=== PATIENT | male | born 1940 | race Caucasian/White ===

== ENCOUNTER 2021-07-24 14:01 | Emergency (ER) | payer MEDICARE ==
[~2021-07-24] VITALS: Ht 185.4 cm; Wt 83.0 kg
[2021-07-24] MEDS ORDERED: normal saline 1000ML IV soln IVB ONE (15:10)
--- NOTE | 2021-07-24 15:35 | NUR ---
PT TO CT
[2021-07-24 15:53] LABS: BASOPHILS % (AUTO) 0.6 % (0-1); EOSINOPHILS # (AUTO) 0.1 X10'3 (0-0.9); EOSINOPHILS % (AUTO) 1.1 % (0-6); HEMATOCRIT 43.2 % (42.0-52.0); HEMOGLOBIN 15.1 g/dl (14.0-17.9); LYMPHOCYTES # (AUTO) 1.3 X10'3 (1.1-4.8); LYMPHOCYTES % (AUTO) 23.4 % (21-51); MEAN CORPUSCULAR HEMOGLOBIN 33.4 PG (27.0-31.0); MEAN CORPUSCULAR VOLUME 95.2 FL (78-98); MEAN PLATELET VOLUME 7.4 FL (7.4-10.4); MONOCYTES # (AUTO) 0.6 X10'3 (0-0.9); MONOCYTES % (AUTO) 10.8 % (2-12); NEUTROPHILS # (AUTO) 3.6 X10'3 (1.8-7.7); NEUTROPHILS % (AUTO) 64.1 % (42-75); PLATELET COUNT 221 X10'3 (140-440); RED BLOOD COUNT 4.53 X10'6 (4.70-6.10); RED CELL DISTRIBUTION WIDTH 14.4 % (11.5-14.5); WHITE BLOOD COUNT 5.6 X10'3 (4.5-11.0)
--- NOTE | 2021-07-24 16:20 | NUR ---
pt is resting quietly on bed, family at bedside
[2021-07-24 16:22] LABS: ALANINE AMINOTRANSFERASE 22 U/L (12-78); ALBUMIN 3.9 G/DL (3.4-5.0); ALBUMIN/GLOBULIN RATIO 1.3 (1.1-1.5); ALKALINE PHOSPHATASE 111 IU/L (46-116); ANION GAP 9 (8-16); ASPARTATE AMINO TRANSFERASE 14 U/L (10-37); BILIRUBIN,TOTAL 0.5 MG/DL (0.1-1.0); BLOOD UREA NITROGEN 10 MG/DL (7-18); BUN/CREATININE RATIO 8.3 (5.4-32.0); CALCIUM 7.9 MG/DL (8.5-10.1); CHLORIDE 106 MMOL/L (99-107); GLUCOSE 112 MG/DL (70-104); POTASSIUM 4.1 MMOL/L (3.5-5.1); SODIUM 144 MMOL/L (135-145); TOTAL CARBON DIOXIDE 28.7 MMOL/L (24-32); TOTAL PROTEIN 6.9 G/DL (6.4-8.2); eGFR 58 ML/MIN
[2021-07-24 16:23] LABS: TROPONIN I < 0.04 NG/ML (0.0-0.05)
[2021-07-24 17:04] VITALS: BP 133/89
== END 2021-07-24 17:06 | disposition home or self-care (01) ==
LOC: ER 14:02
DX: R53.1 Weakness (principal); R42 Dizziness and giddiness; Z86.73 Personal history of transient ischemic attack (TIA), and cerebral infarction without residual deficits; Z88.0 Allergy status to penicillin; Z90.49 Acquired absence of other specified parts of digestive tract
CPT/HCPCS: 36415; 70450; 71045; 80053; 84484; 85025; 93005; 96360; 99285; J7030

== ENCOUNTER 2024-09-03 06:06 | Inpatient (IN) | payer MEDICARE ==
[~2024-09-03] VITALS: Ht 180.3 cm; Wt 75.4 kg
[2024-09-03] VITALS (16 sets, daily range): BP systolic 124–159; BP diastolic 51–75; PULSE 54–84; RESP 14–21; TEMP 97.5–98.4; O2SAT 93–99
[2024-09-03] MEDS: normal saline 1000ml 1,000 ML IV SCH (05:20)
[2024-09-03] MEDS: morphine 2 MG/ML inj. syringe IV ONE (06:20)
[2024-09-03 06:45] LABS: BASOPHILS % (AUTO) 0.1 % (0-1); EOSINOPHILS % (AUTO) 0 % (0-6); HEMATOCRIT 42.3 % (42.0-52.0); HEMOGLOBIN 14.7 g/dl (14.0-17.9); LYMPHOCYTES # (AUTO) 0.3 X10'3 (1.1-4.8); LYMPHOCYTES % (AUTO) 2.2 % (21-51); MEAN CORPUSCULAR HEMOGLOBIN 30.8 PG (27.0-31.0); MEAN CORPUSCULAR HGB CONC 34.7 g/dL (33.0-36.5); MEAN CORPUSCULAR VOLUME 88.7 FL (78-98); MEAN PLATELET VOLUME 7.3 FL (7.4-10.4); MONOCYTES % (AUTO) 8.7 % (2-12); NEUTROPHILS # (AUTO) 10.6 X10'3 (1.8-7.7); PLATELET COUNT 190 X10'3 (140-440); RED BLOOD COUNT 4.77 X10'6 (4.70-6.10)
[2024-09-03 07:02] LABS: ALANINE AMINOTRANSFERASE 491 U/L (12-78); ALBUMIN 3.8 G/DL (3.4-5.0); ALBUMIN/GLOBULIN RATIO 1.3 (1.1-1.5); ALKALINE PHOSPHATASE 220 IU/L (46-116); ANION GAP 4 (8-16); ASPARTATE AMINO TRANSFERASE 637 U/L (10-37); BLOOD UREA NITROGEN 16 MG/DL (7-18); BUN/CREATININE RATIO 13.4 (10.0-20.0); CALCIUM 8.9 MG/DL (8.5-10.1); CHLORIDE 105 MMOL/L (99-107); CREATININE 1.19 MG/DL (0.60-1.10); GLUCOSE 162 MG/DL (70-104); POTASSIUM 3.6 MMOL/L (3.5-5.1); SODIUM 139 MMOL/L (135-145); TOTAL PROTEIN 6.7 G/DL (6.4-8.2); eCRCL 47 ML/MIN; eGFR 58 ML/MIN
[2024-09-03 07:09] LABS: PRO BRAIN NATRIURETIC PEPTIDE 601 PG/ML (0-450)
[2024-09-03] MEDS: morphine 4 MG/ML inj SYRINge IV ONE (07:25)
[2024-09-03] MEDS ORDERED: iohexol 300mg/ml 100ml inj. ONE (07:35)
[2024-09-03 07:53] LABS: LIPASE 51 U/L (16-77)
[2024-09-03] MEDS: ondansetron/PF 4mg/2ml inj IM ONE (08:16)
[2024-09-03] MEDS ORDERED: potassium Cl 20 mEq SR tablet PO PRN ×2 (08:40)
[2024-09-03] MEDS ORDERED: ondansetron/PF 4mg/2ml inj IV PRN (08:40)
[2024-09-03] MEDS ORDERED: acetaminophen 325mg tablet PO PRN (08:40)
[2024-09-03] MEDS ORDERED: magnesium Cl slow-release 64mg tablet PO PRN (08:40)
[2024-09-03] MEDS ORDERED: magnesium sulf-water 2g/50mL 50 ML IV PRN (08:40)
[2024-09-03] MEDS ORDERED: magnesium sulf-water 4G/100mL 100 ML IV PRN (08:40)
[2024-09-03] MEDS ORDERED: magnesium hydroxide 30ml (MOM) UD suspension PO PRN (08:40)
[2024-09-03] MEDS ORDERED: mag hydrox/Alum hydrox/simeth 30ml oral suspension PO PRN (08:40)
[2024-09-03] MEDS ORDERED: potassium Cl 40MEQ/1/2NS 520ml 520 ML IV PRN (08:40)
[2024-09-03 09:24] LABS: MAGNESIUM 1.8 MG/DL (1.5-2.4)
[2024-09-03] MEDS: PERFLUTREN PROTEIN-A MICROSPHR (Optison) 0.22 MG/ML 3ML VIAL IV ONE (13:50)
[2024-09-03] MEDS ORDERED: glucagon, human recombinant 1mg kit ONE (13:58)
[2024-09-03] MEDS ORDERED: diphenhydrAMINE 50 mg/ml inj ONE (13:58)
[2024-09-03] MEDS ORDERED: MIDAZolam 1 MG/ML 5ML VIAL ONE (13:58)
[2024-09-03] MEDS ORDERED: fentaNYL/PF 50MCG/1 ML 2ML syringe ONE (13:58)
[2024-09-03] MEDS ORDERED: LIDOcaine 2% Viscous 15ml cup ONE (13:59)
[2024-09-03] MEDS: K and/or MAG REPLACEMENT MC SCH (19:21)
[2024-09-03 20:50] LABS: APTT 28 SECONDS (22-32); INR 1.2 INR; PROTHROMBIN TIME 12.2 SECONDS (9.0-12.0)
[2024-09-04] VITALS (10 sets, daily range): BP systolic 112–165; BP diastolic 48–86; PULSE 68–97; RESP 16–20; TEMP 97.4–98.5; O2SAT 93–100
[2024-09-04 03:52] LABS: BILIRUBIN,URINE LARGE (Neg); CLARITY,URINE CLEAR (Clear); GLUCOSE, URINE 100 mg/dl (Neg); KETONES,URINE 15 mg/dl (Neg); LEUKOCYTE ESTERASE ,URINE NEGATIVE (Neg); OCCULT BLOOD,URINE NEGATIVE (Neg); PH,URINE 6.5 (4.8-8.0); PROTEIN,URINE 30 mg/dl (Neg); UROBILINOGEN,URINE >=8.0 E.U/dL (0.2-1.0)
[2024-09-04 04:02] LABS: COLOR,URINE AMBER (Yellow); NITRITES, URINE NEGATIVE (Neg); UA COLLECTION TYPE URINAL
[2024-09-04 04:05] LABS: BACTERIA,URINE FEW /HPF (Neg); SQUAMOUS EPITHELIAL CELL,UR FEW /LPF (FEW); WBC,URINE 0-4 /HPF (0-4)
[2024-09-04 04:06] LABS: AMORPHOUS PHOSPHATES 1+; FINE GRANULAR CAST 0-3 /LPF (NEGATIVE)
[2024-09-04 07:13] LABS: POTASSIUM 3.5 MMOL/L (3.5-5.1)
[2024-09-04 09:09] LABS: BASOPHILS % (AUTO) 0.6 % (0-1); EOSINOPHILS % (AUTO) 0.8 % (0-6); HEMATOCRIT 40.3 % (42.0-52.0); HEMOGLOBIN 13.8 g/dl (14.0-17.9); LYMPHOCYTES # (AUTO) 0.5 X10'3 (1.1-4.8); LYMPHOCYTES % (AUTO) 8.1 % (21-51); MEAN CORPUSCULAR HEMOGLOBIN 30.4 PG (27.0-31.0); MEAN CORPUSCULAR HGB CONC 34.1 g/dL (33.0-36.5); MEAN CORPUSCULAR VOLUME 89.1 FL (78-98); MEAN PLATELET VOLUME 7.9 FL (7.4-10.4); MONOCYTES # (AUTO) 0.7 X10'3 (0-0.9); MONOCYTES % (AUTO) 11.8 % (2-12); NEUTROPHILS # (AUTO) 4.7 X10'3 (1.8-7.7); NEUTROPHILS % (AUTO) 78.7 % (42-75); PLATELET COUNT 160 X10'3 (140-440); RED BLOOD COUNT 4.52 X10'6 (4.70-6.10); RED CELL DISTRIBUTION WIDTH 14.7 % (11.5-14.5)
[2024-09-04 09:16] LABS: ALANINE AMINOTRANSFERASE 260 U/L (12-78); ALBUMIN 3.2 G/DL (3.4-5.0); ALBUMIN/GLOBULIN RATIO 1.2 (1.1-1.5); ALKALINE PHOSPHATASE 189 IU/L (46-116); ANION GAP 6 (8-16); ASPARTATE AMINO TRANSFERASE 142 U/L (10-37); BILIRUBIN,TOTAL 2.9 MG/DL (0.1-1.0); BLOOD UREA NITROGEN 15 MG/DL (7-18); BUN/CREATININE RATIO 13.2 (10.0-20.0); CALCIUM 8.5 MG/DL (8.5-10.1); CHLORIDE 106 MMOL/L (99-107); CREATININE 1.14 MG/DL (0.60-1.10); GLUCOSE 88 MG/DL (70-104); POTASSIUM 3.8 MMOL/L (3.5-5.1); SODIUM 139 MMOL/L (135-145); TOTAL CARBON DIOXIDE 27.4 MMOL/L (24-32); TOTAL PROTEIN 5.9 G/DL (6.4-8.2); eCRCL 50 ML/MIN; eGFR 61 ML/MIN
[2024-09-04 09:35] LABS: HEMOGLOBIN A1C 5.1 % (4.5-6.2)
[2024-09-04] MEDS ORDERED: morphine 4 MG/ML inj SYRINge IV PRN (19:55)
[2024-09-04] MEDS ORDERED: morphine 2 MG/ML inj. syringe IV PRN (19:55)
[2024-09-04] MEDS ORDERED: ondansetron/PF 4mg/2ml inj IV PRN ×2 (19:55→22:40)
[2024-09-04] MEDS ORDERED: meperidine/PF 25mg/ml syringe IV PRN ×3 (19:55)
[2024-09-04] MEDS ORDERED: proCHLORperazine 10 MG/2 ml inj IV PRN (19:55)
[2024-09-04] MEDS: ringers solution, lacted 1,000 ML IV SCH (19:55)
[2024-09-04] MEDS ORDERED: enalaprilat dihydrate 2.5mg/2ml vial IV PRN (19:55)
[2024-09-04] MEDS ORDERED: labetalol 20mg/4ml (5mg/ml) syringe IV PRN (19:55)
[2024-09-04] MEDS: BUPIVAcaine 2.5mg/ml inj 50ml vial (contains preservative) ONE (20:27)
[2024-09-04] MEDS ORDERED: midazolam 1 mg/ML 2ml injection ONE (20:48)
[2024-09-04] MEDS ORDERED: fentaNYL/PF 50MCG/1 ML 2ML syringe ONE (20:48)
[2024-09-04] MEDS ORDERED: sevoflurane 250ml liquid IH ONE (21:05)
[2024-09-04] MEDS ORDERED: LIDOcaine 1%/PF 5ML 10 MG/ML VIAL ONE (21:27)
[2024-09-04] MEDS ORDERED: propofol inj 20 ML IV ONE (21:27)
[2024-09-04] MEDS ORDERED: rocuronium 10mg/ml inj IV ONE (21:27)
[2024-09-04] MEDS: clindamycin-Cleocin 900mg/D5W 50 ML IV ONE (21:38)
[2024-09-04] MEDS ORDERED: acetaminophen 1,000mg/100ml IV 100 ML IV ONE (21:40)
[2024-09-04] MEDS: BUPIVAcaine 2.5mg/ml inj 50ml vial (contains preservative) SQ ONE (21:44)
[2024-09-04] MEDS ORDERED: meperidine/PF 25mg/ml syringe ONE (22:30)
[2024-09-04] MEDS ORDERED: naloxone 0.4 mg/ml inj IV PRN (22:40)
[2024-09-05] VITALS (12 sets, daily range): BP systolic 121–162; BP diastolic 50–77; PULSE 65–88; RESP 15–21; TEMP 97.6–98.6; O2SAT 92–97
[2024-09-05] MEDS: metroNIDAZOLE-Flagyl 500mg/NS 100 ML IV SCH (00:18)
[2024-09-05] MEDS: HYDROcodone/acetaminophen 10/325mg tab PO PRN (05:18)
[2024-09-05 06:45] LABS: BASOPHILS % (AUTO) 0 % (0-1); EOSINOPHILS % (AUTO) 0 % (0-6); HEMATOCRIT 44.2 % (42.0-52.0); HEMOGLOBIN 15.3 g/dl (14.0-17.9); LYMPHOCYTES # (AUTO) 0.4 X10'3 (1.1-4.8); LYMPHOCYTES % (AUTO) 3.5 % (21-51); MEAN CORPUSCULAR HEMOGLOBIN 31.1 PG (27.0-31.0); MEAN CORPUSCULAR HGB CONC 34.7 g/dL (33.0-36.5); MEAN CORPUSCULAR VOLUME 89.8 FL (78-98); MEAN PLATELET VOLUME 8.2 FL (7.4-10.4); MONOCYTES # (AUTO) 1.1 X10'3 (0-0.9); MONOCYTES % (AUTO) 10.5 % (2-12); NEUTROPHILS # (AUTO) 9.1 X10'3 (1.8-7.7); PLATELET COUNT 156 X10'3 (140-440); RED BLOOD COUNT 4.92 X10'6 (4.70-6.10); RED CELL DISTRIBUTION WIDTH 14.2 % (11.5-14.5); WHITE BLOOD COUNT 10.5 X10'3 (4.5-11.0)
[2024-09-05 07:10] LABS: ALANINE AMINOTRANSFERASE 189 U/L (12-78); ALBUMIN 3.3 G/DL (3.4-5.0); ALBUMIN/GLOBULIN RATIO 1.1 (1.1-1.5); ALKALINE PHOSPHATASE 187 IU/L (46-116); ANION GAP 11 (8-16); ASPARTATE AMINO TRANSFERASE 70 U/L (10-37); BLOOD UREA NITROGEN 11 MG/DL (7-18); BUN/CREATININE RATIO 10.3 (10.0-20.0); CALCIUM 8.7 MG/DL (8.5-10.1); CHLORIDE 102 MMOL/L (99-107); CREATININE 1.07 MG/DL (0.60-1.10); GLUCOSE 114 MG/DL (70-104); MAGNESIUM 1.9 MG/DL (1.5-2.4); POTASSIUM 3.7 MMOL/L (3.5-5.1); SODIUM 138 MMOL/L (135-145); TOTAL PROTEIN 6.4 G/DL (6.4-8.2); eCRCL 53 ML/MIN; eGFR 66 ML/MIN
[2024-09-05] MEDS: levoFLOXACIN-Levaquin 750MG/D5 150 ML IV SCH (13:02)
[2024-09-06 06:00] VITALS: BP 152/86; PULSE 92; RESP 12; TEMP 99; O2SAT 94
[2024-09-06 06:58] LABS: BASOPHILS % (AUTO) 0.2 % (0-1); EOSINOPHILS % (AUTO) 0.1 % (0-6); HEMATOCRIT 35.7 % (42.0-52.0); HEMOGLOBIN 12.6 g/dl (14.0-17.9); LYMPHOCYTES # (AUTO) 0.8 X10'3 (1.1-4.8); LYMPHOCYTES % (AUTO) 9.6 % (21-51); MEAN CORPUSCULAR HGB CONC 35.2 g/dL (33.0-36.5); MEAN CORPUSCULAR VOLUME 88.1 FL (78-98); MEAN PLATELET VOLUME 8.5 FL (7.4-10.4); MONOCYTES # (AUTO) 1.2 X10'3 (0-0.9); MONOCYTES % (AUTO) 14.2 % (2-12); NEUTROPHILS # (AUTO) 6.2 X10'3 (1.8-7.7); NEUTROPHILS % (AUTO) 75.9 % (42-75); PLATELET COUNT 167 X10'3 (140-440); RED BLOOD COUNT 4.05 X10'6 (4.70-6.10); RED CELL DISTRIBUTION WIDTH 14.3 % (11.5-14.5); WHITE BLOOD COUNT 8.2 X10'3 (4.5-11.0)
[2024-09-06 07:17] LABS: ALANINE AMINOTRANSFERASE 94 U/L (12-78); ALBUMIN 2.5 G/DL (3.4-5.0); ALBUMIN/GLOBULIN RATIO 0.9 (1.1-1.5); ALKALINE PHOSPHATASE 124 IU/L (46-116); ANION GAP 7 (8-16); ASPARTATE AMINO TRANSFERASE 24 U/L (10-37); BILIRUBIN,TOTAL 1.1 MG/DL (0.1-1.0); BLOOD UREA NITROGEN 24 MG/DL (7-18); BUN/CREATININE RATIO 21.6 (10.0-20.0); CALCIUM 7.9 MG/DL (8.5-10.1); CHLORIDE 104 MMOL/L (99-107); CREATININE 1.11 MG/DL (0.60-1.10); GLUCOSE 115 MG/DL (70-104); MAGNESIUM 1.7 MG/DL (1.5-2.4); POTASSIUM 3.5 MMOL/L (3.5-5.1); SODIUM 138 MMOL/L (135-145); TOTAL CARBON DIOXIDE 26.9 MMOL/L (24-32); TOTAL PROTEIN 5.4 G/DL (6.4-8.2); eCRCL 51 ML/MIN; eGFR 63 ML/MIN
[2024-09-06 08:00] VITALS: RESP 16; O2SAT 95
[2024-09-06 11:00] VITALS: BP 146/74; PULSE 98; RESP 16; TEMP 98.4; O2SAT 95
[2024-09-06 18:00] VITALS: BP 144/81; PULSE 99; RESP 16; TEMP 98.4; O2SAT 94
[2024-09-06 20:00] VITALS: RESP 16; O2SAT 95
[2024-09-06 22:08] VITALS: BP 157/81; PULSE 95; RESP 18; TEMP 97.8; O2SAT 96
[2024-09-07] MEDS: pantoprazole 40 MG vial IV ONE (05:20)
[2024-09-07 05:55] LABS: BASOPHILS % (AUTO) 0.4 % (0-1); EOSINOPHILS % (AUTO) 0.5 % (0-6); HEMATOCRIT 35.8 % (42.0-52.0); HEMOGLOBIN 12.6 g/dl (14.0-17.9); LYMPHOCYTES # (AUTO) 0.7 X10'3 (1.1-4.8); LYMPHOCYTES % (AUTO) 10.6 % (21-51); MEAN CORPUSCULAR HEMOGLOBIN 31.2 PG (27.0-31.0); MEAN CORPUSCULAR HGB CONC 35.2 g/dL (33.0-36.5); MEAN CORPUSCULAR VOLUME 88.7 FL (78-98); MONOCYTES # (AUTO) 0.8 X10'3 (0-0.9); NEUTROPHILS # (AUTO) 5.3 X10'3 (1.8-7.7); NEUTROPHILS % (AUTO) 76.5 % (42-75); PLATELET COUNT 178 X10'3 (140-440); RED BLOOD COUNT 4.03 X10'6 (4.70-6.10); RED CELL DISTRIBUTION WIDTH 13.8 % (11.5-14.5); WHITE BLOOD COUNT 6.9 X10'3 (4.5-11.0)
[2024-09-07] MEDS: pantoprazole 40 MG vial IV SCH ×2 (06:03→08:00)
[2024-09-07 06:10] LABS: ALANINE AMINOTRANSFERASE 67 U/L (12-78); ALBUMIN 2.5 G/DL (3.4-5.0); ALBUMIN/GLOBULIN RATIO 0.8 (1.1-1.5); ALKALINE PHOSPHATASE 111 IU/L (46-116); ANION GAP 6 (8-16); ASPARTATE AMINO TRANSFERASE 21 U/L (10-37); BILIRUBIN,TOTAL 0.9 MG/DL (0.1-1.0); BLOOD UREA NITROGEN 12 MG/DL (7-18); BUN/CREATININE RATIO 11.8 (10.0-20.0); CALCIUM 8.3 MG/DL (8.5-10.1); CHLORIDE 104 MMOL/L (99-107); CREATININE 1.02 MG/DL (0.60-1.10); GLUCOSE 103 MG/DL (70-104); MAGNESIUM 1.8 MG/DL (1.5-2.4); POTASSIUM 3.4 MMOL/L (3.5-5.1); SODIUM 138 MMOL/L (135-145); TOTAL CARBON DIOXIDE 28.1 MMOL/L (24-32); TOTAL PROTEIN 5.7 G/DL (6.4-8.2); eCRCL 55 ML/MIN; eGFR 69 ML/MIN
[2024-09-07 07:33] VITALS: BP 157/76; PULSE 82; RESP 18; TEMP 97.9; O2SAT 100
[2024-09-07 08:00] VITALS: RESP 16
[2024-09-07 11:00] VITALS: BP 162/69; PULSE 95; RESP 18; TEMP 97.3; O2SAT 95
[2024-09-07] MEDS ORDERED: magnesium sulf-water 2g/50mL 50 ML IV PRN (14:10)
[2024-09-07] MEDS ORDERED: magnesium Cl slow-release 64mg tablet PO PRN (14:10)
[2024-09-07] MEDS ORDERED: potassium Cl 40MEQ/1/2NS 520ml 520 ML IV PRN (14:10)
[2024-09-07] MEDS ORDERED: magnesium sulf-water 4G/100mL 100 ML IV PRN (14:10)
[2024-09-07] MEDS ORDERED: potassium Cl 20 mEq SR tablet PO PRN (14:10)
[2024-09-07 15:45] LABS: HEMATOCRIT 36.6 % (42.0-52.0); HEMOGLOBIN 12.6 g/dl (14.0-17.9); MEAN CORPUSCULAR HEMOGLOBIN 30.6 PG (27.0-31.0); MEAN CORPUSCULAR HGB CONC 34.4 g/dL (33.0-36.5); MEAN CORPUSCULAR VOLUME 88.9 FL (78-98); MEAN PLATELET VOLUME 7.7 FL (7.4-10.4); PLATELET COUNT 210 X10'3 (140-440); RED BLOOD COUNT 4.11 X10'6 (4.70-6.10); RED CELL DISTRIBUTION WIDTH 13.9 % (11.5-14.5); WHITE BLOOD COUNT 6.5 X10'3 (4.5-11.0)
[2024-09-07 16:10] LABS: % IRON SATURATION 30 % (11-46); IRON 43 UG/DL (53-167); TOTAL IRON BINDING CAPACITY 145 UG/DL (259-388)
[2024-09-07 16:18] LABS: FERRITIN 195 NG/ML (26-388)
[2024-09-07 16:19] LABS: OCCULT BLOOD STOOL POSITIVE (Neg)
[2024-09-07] MEDS: losartan 50mg tablet PO SCH (16:23)
[2024-09-07 18:00] VITALS: BP 155/73; PULSE 85; RESP 19; TEMP 97.7; O2SAT 94
[2024-09-07 20:00] VITALS: RESP 19; O2SAT 94
[2024-09-07] MEDS: K and/or MAG REPLACEMENT MC SCH (20:00)
[2024-09-07] MEDS: potassium Cl 20 mEq SR tablet PO PRN (20:59)
[2024-09-07] MEDS: lactobacillus rhamnosus 10,000 MMU CELLS/CAPSULE PO SCH (21:00)
[2024-09-07 21:03] LABS: BASOPHILS % (AUTO) 0.3 % (0-1); EOSINOPHILS % (AUTO) 0.7 % (0-6); HEMATOCRIT 34.1 % (42.0-52.0); HEMOGLOBIN 11.9 g/dl (14.0-17.9); LYMPHOCYTES # (AUTO) 0.9 X10'3 (1.1-4.8); LYMPHOCYTES % (AUTO) 15.2 % (21-51); MEAN CORPUSCULAR VOLUME 88.5 FL (78-98); MEAN PLATELET VOLUME 7.7 FL (7.4-10.4); MONOCYTES # (AUTO) 0.7 X10'3 (0-0.9); MONOCYTES % (AUTO) 11.4 % (2-12); NEUTROPHILS # (AUTO) 4.4 X10'3 (1.8-7.7); NEUTROPHILS % (AUTO) 72.4 % (42-75); PLATELET COUNT 196 X10'3 (140-440); RED BLOOD COUNT 3.85 X10'6 (4.70-6.10); WHITE BLOOD COUNT 6.1 X10'3 (4.5-11.0)
[2024-09-07 22:00] VITALS: BP 140/69; PULSE 71; RESP 16; TEMP 98.4; O2SAT 93
[2024-09-08] VITALS (17 sets, daily range): BP systolic 106–161; BP diastolic 50–86; PULSE 58–96; RESP 14–24; TEMP 97.2–98.4; O2SAT 93–100
[2024-09-08 05:51] LABS: BASOPHILS % (AUTO) 0.3 % (0-1); EOSINOPHILS # (AUTO) 0.1 X10'3 (0-0.9); HEMATOCRIT 32.5 % (42.0-52.0); HEMOGLOBIN 11.5 g/dl (14.0-17.9); LYMPHOCYTES # (AUTO) 0.8 X10'3 (1.1-4.8); LYMPHOCYTES % (AUTO) 13.5 % (21-51); MEAN CORPUSCULAR HEMOGLOBIN 31.2 PG (27.0-31.0); MEAN CORPUSCULAR HGB CONC 35.3 g/dL (33.0-36.5); MEAN CORPUSCULAR VOLUME 88.3 FL (78-98); MEAN PLATELET VOLUME 7.6 FL (7.4-10.4); MONOCYTES # (AUTO) 0.7 X10'3 (0-0.9); MONOCYTES % (AUTO) 12.2 % (2-12); NEUTROPHILS # (AUTO) 4.3 X10'3 (1.8-7.7); PLATELET COUNT 204 X10'3 (140-440); RED BLOOD COUNT 3.68 X10'6 (4.70-6.10); RED CELL DISTRIBUTION WIDTH 14.1 % (11.5-14.5); WHITE BLOOD COUNT 5.9 X10'3 (4.5-11.0)
[2024-09-08 06:08] LABS: ALANINE AMINOTRANSFERASE 50 U/L (12-78); ALBUMIN 2.4 G/DL (3.4-5.0); ALBUMIN/GLOBULIN RATIO 0.8 (1.1-1.5); ALKALINE PHOSPHATASE 94 IU/L (46-116); ANION GAP 5 (8-16); ASPARTATE AMINO TRANSFERASE 20 U/L (10-37); BILIRUBIN,TOTAL 0.6 MG/DL (0.1-1.0); BLOOD UREA NITROGEN 12 MG/DL (7-18); BUN/CREATININE RATIO 11.9 (10.0-20.0); CALCIUM 8.5 MG/DL (8.5-10.1); CHLORIDE 106 MMOL/L (99-107); CREATININE 1.01 MG/DL (0.60-1.10); GLUCOSE 116 MG/DL (70-104); POTASSIUM 3.2 MMOL/L (3.5-5.1); SODIUM 141 MMOL/L (135-145); TOTAL CARBON DIOXIDE 29.7 MMOL/L (24-32); TOTAL PROTEIN 5.3 G/DL (6.4-8.2); eCRCL 56 ML/MIN; eGFR 70 ML/MIN
[2024-09-08] MEDS: iron polysaccharide complex 150mg capsule PO SCH (08:02)
[2024-09-08 10:54] LABS: HEMATOCRIT 33.3 % (42.0-52.0); HEMOGLOBIN 11.7 g/dl (14.0-17.9); MEAN CORPUSCULAR HEMOGLOBIN 31.4 PG (27.0-31.0); MEAN CORPUSCULAR HGB CONC 35.2 g/dL (33.0-36.5); MEAN CORPUSCULAR VOLUME 89.1 FL (78-98); MEAN PLATELET VOLUME 7.5 FL (7.4-10.4); PLATELET COUNT 210 X10'3 (140-440); RED BLOOD COUNT 3.73 X10'6 (4.70-6.10); WHITE BLOOD COUNT 5.5 X10'3 (4.5-11.0)
[2024-09-08] MEDS ORDERED: NO HOME MEDS (12:23)
[2024-09-08] MEDS ORDERED: MIDAZolam 1 MG/ML 5ML VIAL ONE (13:49)
[2024-09-08] MEDS ORDERED: LIDOcaine 2% Viscous 15ml cup ONE (13:49)
[2024-09-08] MEDS ORDERED: fentaNYL/PF 50MCG/1 ML 2ML syringe ONE (13:49)
[2024-09-08] MEDS: lactose-reduced food (Ensure Enlive) - 237ml bottle PO SCH (18:00)
[2024-09-09 05:03] LABS: BASOPHILS % (AUTO) 0.5 % (0-1); EOSINOPHILS # (AUTO) 0.1 X10'3 (0-0.9); EOSINOPHILS % (AUTO) 1.3 % (0-6); HEMATOCRIT 32.6 % (42.0-52.0); HEMOGLOBIN 11.3 g/dl (14.0-17.9); MEAN CORPUSCULAR HEMOGLOBIN 30.4 PG (27.0-31.0); MEAN CORPUSCULAR HGB CONC 34.6 g/dL (33.0-36.5); MEAN CORPUSCULAR VOLUME 87.9 FL (78-98); MEAN PLATELET VOLUME 7.4 FL (7.4-10.4); MONOCYTES # (AUTO) 0.7 X10'3 (0-0.9); MONOCYTES % (AUTO) 13.2 % (2-12); NEUTROPHILS # (AUTO) 3.6 X10'3 (1.8-7.7); PLATELET COUNT 246 X10'3 (140-440); RED BLOOD COUNT 3.71 X10'6 (4.70-6.10); RED CELL DISTRIBUTION WIDTH 13.8 % (11.5-14.5); WHITE BLOOD COUNT 5.5 X10'3 (4.5-11.0)
[2024-09-09 05:23] LABS: ALBUMIN 2.4 G/DL (3.4-5.0); ANION GAP 6 (8-16); BLOOD UREA NITROGEN 5 MG/DL (7-18); BUN/CREATININE RATIO 5.3 (10.0-20.0); CALCIUM 8.4 MG/DL (8.5-10.1); CHLORIDE 106 MMOL/L (99-107); CREATININE 0.95 MG/DL (0.60-1.10); GLUCOSE 103 MG/DL (70-104); POTASSIUM 3.5 MMOL/L (3.5-5.1); SODIUM 141 MMOL/L (135-145); TOTAL CARBON DIOXIDE 28.8 MMOL/L (24-32); eCRCL 59 ML/MIN; eGFR 75 ML/MIN
[2024-09-09 06:59] VITALS: BP 150/80; PULSE 68; RESP 16; TEMP 97.7; O2SAT 97
[2024-09-09] MEDS: pantoprazole 40mg Tablet.DR PO SCH (07:11)
[2024-09-09 07:15] VITALS: RESP 16; O2SAT 97
[2024-09-09 11:41] VITALS: BP 136/53; PULSE 70; RESP 19; TEMP 97.6; O2SAT 95
== END 2024-09-09 16:15 | DRG 417 ==
LOC: EEVIPCON 06:07 → ER 06:07 → ED HOLD 08:45 → ORTHO 4S 13:01 → SUR 3N 09-04 16:24
PROVIDERS: ADMIT Family Medicine; ATTEND Family Medicine
PROC: 0FC98ZZ Extirpation of Matter from Common Bile Duct, Via Natural or Artificial Opening Endoscopic (ICD-10-PCS; 2024-09-03)
PROC: BF101ZZ Fluoroscopy of Bile Ducts using Low Osmolar Contrast (ICD-10-PCS; 2024-09-03)
PROC: BW211ZZ Computerized Tomography (CT Scan) of Abdomen and Pelvis using Low Osmolar Contrast (ICD-10-PCS; 2024-09-03)
PROC: 8E0W4CZ Robotic Assisted Procedure of Trunk Region, Percutaneous Endoscopic Approach (ICD-10-PCS; 2024-09-04)
PROC: 0FT44ZZ Resection of Gallbladder, Percutaneous Endoscopic Approach (ICD-10-PCS; principal; 2024-09-04 21:05)
PROC: 0DJ08ZZ Inspection of Upper Intestinal Tract, Via Natural or Artificial Opening Endoscopic (ICD-10-PCS; 2024-09-08)
DX: K80.62 Calculus of gallbladder and bile duct with acute cholecystitis without obstruction (principal); K22.6 Gastro-esophageal laceration-hemorrhage syndrome; N17.0 Acute kidney failure with tubular necrosis; N28.89 Other specified disorders of kidney and ureter; D64.9 Anemia, unspecified; R73.9 Hyperglycemia, unspecified; R74.01 Elevation of levels of liver transaminase levels; I10 Essential (primary) hypertension; Z88.0 Allergy status to penicillin; Z90.49 Acquired absence of other specified parts of digestive tract
CPT/HCPCS: 36415; 43235; 43264; 71045; 74177; 74181; 80048; 80053; 81001; 82272; 82436; 82570; 82728; 82948; 83036; 83540; 83550; 83690; 83735; 83880; 83930; 83935; 84132; 84300; 84484; 85025; 85027; 85610; 85730; 87081; 88304; 93005; 93306; 96372; 96374; 97116; 97161; 97164; 97530; 99152; 99153; 99285; A4215; A4349; A4615; A4618; A4620; A6212; A6253; A6402; A6407; A6449; A7000; C1769; G0378; J0131; J1100; J1200; J1610; J1956; J2175; J2250; J2270; J2405; J2470; J2704; J2710; J3010; J3490; J7030; J7120; Q9967

== ENCOUNTER 2024-11-20 19:26 | Emergency (ER) | payer MEDICARE ==
[~2024-11-20] VITALS: Ht 180.3 cm; Wt 78.8 kg
[~2024-11-20 19:26] MED LIST: NO HOME MEDS
[2024-11-20 19:56] LABS: BILIRUBIN,URINE NEGATIVE (Neg); CLARITY,URINE CLEAR (Clear); COLOR,URINE YELLOW (Yellow); GLUCOSE, URINE NEGATIVE (Neg); KETONES,URINE NEGATIVE (Neg); LEUKOCYTE ESTERASE ,URINE NEGATIVE (Neg); NITRITES, URINE NEGATIVE (Neg); OCCULT BLOOD,URINE NEGATIVE (Neg); PROTEIN,URINE NEGATIVE (Neg); UROBILINOGEN,URINE 0.2 E.U/dL (0.2-1.0)
[2024-11-20 20:00] LABS: BASOPHILS % (AUTO) 0.4 % (0-1); EOSINOPHILS # (AUTO) 0.1 X10'3 (0-0.9); EOSINOPHILS % (AUTO) 1.5 % (0-6); HEMATOCRIT 38.4 % (42.0-52.0); HEMOGLOBIN 13.3 g/dl (14.0-17.9); LYMPHOCYTES # (AUTO) 1.3 X10'3 (1.1-4.8); LYMPHOCYTES % (AUTO) 18.8 % (21-51); MEAN CORPUSCULAR HEMOGLOBIN 30.6 PG (27.0-31.0); MEAN CORPUSCULAR HGB CONC 34.6 g/dL (33.0-36.5); MEAN CORPUSCULAR VOLUME 88.5 FL (78-98); MEAN PLATELET VOLUME 7.8 FL (7.4-10.4); MONOCYTES # (AUTO) 0.6 X10'3 (0-0.9); MONOCYTES % (AUTO) 8.7 % (2-12); NEUTROPHILS # (AUTO) 4.9 X10'3 (1.8-7.7); NEUTROPHILS % (AUTO) 70.6 % (42-75); PLATELET COUNT 253 X10'3 (140-440); RED BLOOD COUNT 4.34 X10'6 (4.70-6.10); RED CELL DISTRIBUTION WIDTH 14.2 % (11.5-14.5); WHITE BLOOD COUNT 6.9 X10'3 (4.5-11.0)
[2024-11-20 20:02] LABS: UA COLLECTION TYPE URINAL
[2024-11-20] MEDS: morphine 4 MG/ML inj SYRINge IV ONE (20:04)
[2024-11-20] MEDS: ondansetron/PF 4mg/2ml inj IV ONE (20:04)
[2024-11-20 20:15] LABS: ALANINE AMINOTRANSFERASE 18 U/L (12-78); ALBUMIN/GLOBULIN RATIO 1.2 (1.1-1.5); ALKALINE PHOSPHATASE 129 IU/L (46-116); ANION GAP 7 (8-16); ASPARTATE AMINO TRANSFERASE 16 U/L (10-37); BILIRUBIN,TOTAL 0.5 MG/DL (0.1-1.0); BLOOD UREA NITROGEN 21 MG/DL (7-18); BUN/CREATININE RATIO 16.7 (10.0-20.0); CHLORIDE 107 MMOL/L (99-107); CREATININE 1.26 MG/DL (0.60-1.10); GLUCOSE 116 MG/DL (70-104); POTASSIUM 4.2 MMOL/L (3.5-5.1); SODIUM 145 MMOL/L (135-145); TOTAL CARBON DIOXIDE 31.1 MMOL/L (24-32); TOTAL PROTEIN 7.4 G/DL (6.4-8.2); eCRCL 45 ML/MIN; eGFR 54 ML/MIN
[2024-11-20] MEDS ORDERED: iohexol 300mg/ml 100ml inj. ONE (20:16)
[2024-11-20] MEDS: LidoCAINE 2% Topical Jelly 11mL syringe (UROJET) TOP ONE (22:29)
[2024-11-20] MEDS ORDERED: OXYC-658 PO (22:37)
[2024-11-20 23:22] VITALS: BP 154/67; PULSE 98; RESP 16; TEMP 98.2; O2SAT 98
[2024-12-14] MEDS ORDERED: LOSA50TA64 PO (14:01)
== END 2024-11-20 23:25 | disposition home or self-care (01) ==
LOC: ER 19:28 → EEVIPCON 19:28 → ER 23:25
DX: M13.852 Other specified arthritis, left hip (principal); M25.551 Pain in right hip; C64.2 Malignant neoplasm of left kidney, except renal pelvis; R33.9 Retention of urine, unspecified; Z88.0 Allergy status to penicillin; Z90.49 Acquired absence of other specified parts of digestive tract
CPT/HCPCS: 36415; 51798; 74176; 80053; 81003; 83605; 85025; 99284; A4314; A4358; J7030; 51702; 74177; Q9967

== ENCOUNTER 2024-11-27 17:34 | Emergency (ER) | payer MEDICARE ==
[~2024-11-27] VITALS: Ht 177.8 cm; Wt 81.8 kg
[~2024-11-27 17:34] MED LIST changes: +OXYC-658 PO
[2024-11-27 22:46] LABS: BASOPHILS % (AUTO) 0.4 % (0-1); EOSINOPHILS # (AUTO) 0.2 X10'3 (0-0.9); EOSINOPHILS % (AUTO) 1.4 % (0-6); HEMATOCRIT 38.3 % (42.0-52.0); HEMOGLOBIN 13.4 g/dl (14.0-17.9); LYMPHOCYTES # (AUTO) 1.2 X10'3 (1.1-4.8); LYMPHOCYTES % (AUTO) 11.2 % (21-51); MEAN CORPUSCULAR HEMOGLOBIN 30.8 PG (27.0-31.0); MEAN CORPUSCULAR HGB CONC 35.1 g/dL (33.0-36.5); MEAN CORPUSCULAR VOLUME 87.8 FL (78-98); MEAN PLATELET VOLUME 7.4 FL (7.4-10.4); MONOCYTES # (AUTO) 1.3 X10'3 (0-0.9); MONOCYTES % (AUTO) 12.5 % (2-12); NEUTROPHILS # (AUTO) 7.9 X10'3 (1.8-7.7); NEUTROPHILS % (AUTO) 74.5 % (42-75); PLATELET COUNT 271 X10'3 (140-440); RED BLOOD COUNT 4.36 X10'6 (4.70-6.10); WHITE BLOOD COUNT 10.6 X10'3 (4.5-11.0)
[2024-11-27 23:01] LABS: ALANINE AMINOTRANSFERASE 14 U/L (12-78); ALBUMIN 3.6 G/DL (3.4-5.0); ALBUMIN/GLOBULIN RATIO 1.1 (1.1-1.5); ALKALINE PHOSPHATASE 146 IU/L (46-116); ANION GAP 6 (8-16); ASPARTATE AMINO TRANSFERASE 7 U/L (10-37); BILIRUBIN,TOTAL 0.8 MG/DL (0.1-1.0); BLOOD UREA NITROGEN 16 MG/DL (7-18); BUN/CREATININE RATIO 15.4 (10.0-20.0); CALCIUM 9.1 MG/DL (8.5-10.1); CHLORIDE 103 MMOL/L (99-107); CREATININE 1.04 MG/DL (0.60-1.10); GLUCOSE 111 MG/DL (70-104); POTASSIUM 4.2 MMOL/L (3.5-5.1); SODIUM 138 MMOL/L (135-145); TOTAL CARBON DIOXIDE 29.5 MMOL/L (24-32); TOTAL PROTEIN 6.9 G/DL (6.4-8.2); eCRCL 53 ML/MIN; eGFR 68 ML/MIN
[2024-11-27] MEDS ORDERED: LEVO-65 PO (23:20)
[2024-11-27 23:38] LABS: BILIRUBIN,URINE NEGATIVE (Neg); CLARITY,URINE CLEAR (Clear); COLOR,URINE YELLOW (Yellow); GLUCOSE, URINE 100 mg/dl (Neg); KETONES,URINE 15 mg/dl (Neg); LEUKOCYTE ESTERASE ,URINE MODERATE (Neg); NITRITES, URINE POSITIVE (Neg); OCCULT BLOOD,URINE LARGE (Neg); PROTEIN,URINE >=300 mg/dl (Neg)
[2024-11-28 00:02] LABS: UA COLLECTION TYPE FOLEY CATH
[2024-11-28 00:06] LABS: BACTERIA,URINE 1+ /HPF (Neg); RBC,URINE TNTC /HPF (0-2); SQUAMOUS EPITHELIAL CELL,UR NONE SEEN /LPF (FEW); WBC,URINE 20-30 /HPF (0-4)
[2024-11-28] MEDS: levoFLOXACIN 250mg tablet PO ONE (00:17)
[2024-11-28 00:59] VITALS: BP 160/85; PULSE 75; RESP 16; TEMP 98.1; O2SAT 96
== END 2024-11-28 01:01 | disposition home or self-care (01) ==
LOC: ER 17:34
DX: T83.091A Other mechanical complication of indwelling urethral catheter, initial encounter (principal); Z88.0 Allergy status to penicillin; Z90.49 Acquired absence of other specified parts of digestive tract
CPT/HCPCS: 36415; 51702; 80053; 81001; 85025; 87077; 87088; 87186; 99284; A4314; A4358; A5200; 81003

== ENCOUNTER 2024-12-13 21:08 | Emergency (ER) | payer MEDICARE ==
[~2024-12-13] VITALS: Ht 180.3 cm; Wt 74.8 kg
[2024-12-13 23:12] VITALS: BP 163/80; PULSE 86; RESP 18; TEMP 98.7; O2SAT 98
[2024-12-14] MEDS ORDERED: LOSA50TA64 PO (14:01)
== END 2024-12-13 23:20 | disposition home or self-care (01) ==
LOC: ER 21:09
DX: Z46.6 Encounter for fitting and adjustment of urinary device (principal); Z90.49 Acquired absence of other specified parts of digestive tract; Z88.0 Allergy status to penicillin
CPT/HCPCS: 99284